=== PATIENT | female | born 1995 | race Caucasian/White ===

== ENCOUNTER 2020-12-31 15:44 | Emergency (ER) | payer OTHER ==
[~2020-12-31 15:44] MED LIST: ANTIBIOTIC PO; CIPRODEX OTIC7.5 ML EARRT; COLACE 100MG C100 MG PO; IBUPROFEN600 MG PO; LEVOTHYROXINE100 MCG PO; NORCO 5-325 TA1 EACH PO; VITAMIN D 11000 UNIT PO
[2020-12-31] MEDS ORDERED: CEFDINIR300 MG PO (16:57)
[2020-12-31] MEDS ORDERED: CLINDAMYCIN HC300 MG PO (16:57)
== END 2020-12-31 17:10 | disposition home or self-care (01) ==
LOC: ER1 15:44
DX: H66.92 Otitis media, unspecified, left ear (principal); H60.12 Cellulitis of left external ear; I10 Essential (primary) hypertension
CPT/HCPCS: 99282

== ENCOUNTER 2021-01-08 23:54 | Outpatient (CLI) | payer OTHER ==
[~2021-01-08 23:54] MED LIST changes: +CEFDINIR300 MG PO; +CLINDAMYCIN HC300 MG PO
== END 2021-01-09 01:45 | disposition home or self-care (01) ==
LOC: GENOP 23:54
DX: O99.891 Other specified diseases and conditions complicating pregnancy (principal); Z3A.20 20 weeks gestation of pregnancy
CPT/HCPCS: 81001; 96372; J0696; J7030

== ENCOUNTER 2021-02-17 21:55 | Outpatient (CLI) | payer OTHER | END 2021-02-18 00:24 | disposition home or self-care (01) | LOC: EROP 21:55 | DX: O46.90 Antepartum hemorrhage, unspecified, unspecified trimester (principal); Z3A.00 Weeks of gestation of pregnancy not specified | CPT/HCPCS: 81001; G0463 ==

== ENCOUNTER 2021-02-20 21:04 | Outpatient (CLI) | payer OTHER ==
[2021-02-24 18:12] LABS: CHLAMYDIA TRACHOMATIS, NAA Positive (Negative); NEISSERIA GONORRHOEAE, NAA Negative (Negative)
== END 2021-02-20 23:37 | disposition home or self-care (01) ==
LOC: GENOP 21:04
PROVIDERS: Obstetrics & Gynecology
DX: O99.891 Other specified diseases and conditions complicating pregnancy (principal); R10.2 Pelvic and perineal pain; N89.8 Other specified noninflammatory disorders of vagina; O99.282 Endocrine, nutritional and metabolic diseases complicating pregnancy, second trimester; E89.0 Postprocedural hypothyroidism; O99.212 Obesity complicating pregnancy, second trimester; E66.9 Obesity, unspecified; Z87.440 Personal history of urinary (tract) infections; Z79.899 Other long term (current) drug therapy; Z3A.26 26 weeks gestation of pregnancy
CPT/HCPCS: 81001; G0463

== ENCOUNTER 2021-03-05 05:07 | Outpatient (CLI) | payer OTHER | END 2021-03-05 12:06 | disposition home or self-care (01) | LOC: GENOP 05:07 | DX: O99.891 Other specified diseases and conditions complicating pregnancy (principal); R10.2 Pelvic and perineal pain; R10.9 Unspecified abdominal pain; O36.8130 Decreased fetal movements, third trimester, not applicable or unspecified; O99.283 Endocrine, nutritional and metabolic diseases complicating pregnancy, third trimester; E89.0 Postprocedural hypothyroidism; O99.213 Obesity complicating pregnancy, third trimester; E66.9 Obesity, unspecified; Z87.440 Personal history of urinary (tract) infections; Z79.899 Other long term (current) drug therapy; Z3A.28 28 weeks gestation of pregnancy | CPT/HCPCS: 36415; 81001; 86694; 87086; G0463; J0696 ==

== ENCOUNTER 2021-05-07 22:45 | Outpatient (CLI) | payer OTHER | END 2021-05-08 00:17 | disposition home or self-care (01) | LOC: GENOP 22:45 | DX: O9A.213 Injury, poisoning and certain other consequences of external causes complicating pregnancy, third trimester (principal); O47.1 False labor at or after 37 completed weeks of gestation; T14.90XA Injury, unspecified, initial encounter; Z3A.38 38 weeks gestation of pregnancy; V49.9XXA Car occupant (driver) (passenger) injured in unspecified traffic accident, initial encounter; Y92.410 Unspecified street and highway as the place of occurrence of the external cause | CPT/HCPCS: 59025; 81001; 83518 ==

== ENCOUNTER 2021-09-26 15:10 | Emergency (ER) | payer OTHER ==
[2021-09-26] MEDS ORDERED: IBUPROFEN600 MG PO (17:41)
== END 2021-09-26 18:00 | disposition home or self-care (01) ==
LOC: ER1 15:10
DX: S93.402A Sprain of unspecified ligament of left ankle, initial encounter (principal); E07.9 Disorder of thyroid, unspecified; W20.8XXA Other cause of strike by thrown, projected or falling object, initial encounter; Y92.009 Unspecified place in unspecified non-institutional (private) residence as the place of occurrence of the external cause
CPT/HCPCS: 73590; 73610; 99283